=== PATIENT | male | born 1965 | race Caucasian/White ===

== ENCOUNTER 2016-08-10 11:26 | Emergency (ER) | payer OTHER ==
[~2016-08-10 11:26] MED LIST: ASPIRIN EC81 M1 PO; AUGMENTIN 500M500 MG PO; LIPITOR20 M2 PO; ZITHROMAX Z-PA250 M1 PO
[2016-08-10 11:32] VITALS: BP 152/78
--- NOTE | 2016-08-10 11:37 | ED GI/GU/ABDOMINAL COMPLAINT ---
History of Present Illness General Chief Complaint: Male Genitourinary Problems Stated Complaint: TESTICLE PAIN Source: patient Exam Limitations: no limitations Vital Signs & Intake/Output Vital Signs & Intake/Output Vital Signs Date Time Temp Pulse Resp B/P Pulse O2 O2 Flow FiO2 Ox Delivery Rate 08/10 1151 99 Room Air 08/10 1132 97.5 90 22 152/78 95 Room Air Allergies Coded Allergies: NO KNOWN ALLERGIES (03/27/15) Reconcile Medications Aspirin (Ecotrin*) 81 MG TABLET.DR 1 TAB PO DAILY HEART HEALTH (Reported) Atorvastatin Calcium (Lipitor) 20 MG TABLET 1 TAB PO DAILY CHOLESTEROL ( Reported) Triage Note: PER PT RT TESTICULAR SWELLING SINCE LAST PM, PER PT NO HEAVY LIFTING NO URINE C/O. US CALLED BUT NO ANSWER. PER PT TOOK [facility]VIL AT 0900 Triage Nurses Notes Reviewed? yes HPI: Patient is a 51-year-old male presents complaining of right testicular pain. Pain gradual onset yesterday evening. Pain is an aching sensation currently mild, no exacerbating factors. Patient has been taking ibuprofen for back pain with some improvement of his right testicular pain. Patient reports that he was swinging cough clubs yesterday when he felt a pull in his low back. Patient has been having back pain since then. Patient denies any known trauma or inciting factors affecting his right testicle. Urinary urgency 2 days ago, no urinary symptoms since then. Patient denies fevers, chills, abdominal pain, nausea, vomiting, dysuria, hematuria. (JUAN BERG) Past History Travel History Traveled to [place] past 21 day No Medical History Any Pertinent Medical History? see below for history Neurological: NONE EENT: NONE Cardiovascular: hyperlipidemia Respiratory: pneumonia Gastrointestinal: diverticulitis Hepatic: NONE Renal: NONE Musculoskeletal: NONE Psychiatric: NONE Endocrine: NONE Surgical History Surgical History: non-contributory Psychosocial History What is your primary language Slovak Tobacco Use: Quit <30 days ago Family History Hx Contributory? No (JUAN BERG) Review of Systems Review of Systems Constitutional: Denies: chills, fever. EENTM: Reports: no symptoms. Respiratory: Denies: cough, short of breath. Cardiovascular: Denies: chest pain. GI: Denies: abdominal pain, nausea, vomiting. Genitourinary: Reports: see HPI. Musculoskeletal: Reports: back pain. Skin: Reports: no symptoms. Neurological/Psychological: Reports: no symptoms. Hematologic/Endocrine: Reports: no symptoms. Immunologic/Allergic: Reports: no symptoms. (JUAN BERG) Physical Exam Physical Exam General Appearance: well developed/nourished, alert, awake Head: atraumatic, normal appearance Eyes: Bilateral: normal appearance. Ears, Nose, Throat, Mouth: hearing grossly normal Neck: normal inspection, supple, full range of motion Respiratory: no respiratory distress Gastrointestinal: normal bowel sounds, soft, non-tender, NO PALPABLE PULSATILE MASSES. nO PALPABLE HERNIAS Male Genitals: MILD RIGHT TESTICULAR TENDERNESS. nO EPIDIDYMAL TENDERNESS. nORMAL CREMASTERIC REFLEX. nO PALPABLE HERNIA IN THE INGUINAL CANAL Back: normal inspection, normal range of motion, no vertebral tenderness, NO PARASPINAL TENDERNESS Extremities: normal range of motion Neurologic/Psych: no motor/sensory deficits, awake, alert, oriented x 3, normal gait, normal mood/affect Skin: intact, normal color, warm/dry Core Measures ACS in differential dx? No Severe Sepsis Present: No Septic Shock Present: No (JUAN BERG) Progress Differential Diagnosis: epididymitis, orchitis, testicular torsion, hernia, hydrocele, varicocele, spermatocele, lumbar strain Plan of Care: Orders Procedure Date/time Status URINALYSIS 08/10 1144 Complete Laboratory Tests 08/10/16 1148: Urine Color YEL, Urine Clarity CLEAR, Urine pH 6.0, Ur Specific [place] <= 1.005 , Urine Protein NEG, Urine Ketones NEG, Urine Nitrite NEG, Urine Bilirubin NEG, Urine Urobilinogen 0.2, Ur Leukocyte Esterase NEG, Ur Microscopic EXAM NOT REQUIRED, Urine Hemoglobin NEG, Urine Glucose NEG 08/10/2016 1:41:32 PM: Results of ultrasound discussed with patient. Patient had to leave prior to the official results, I called him explaining the results and advised him to follow-up with Dr. Issa if no improvement by tomorrow. (REGIS TREVINO,JUAN) Diagnostic Imaging: Viewed by Me: Ultrasound. Discussed w/RAD: Ultrasound. Radiology Impression: PATIENT: ZOIE REINOSO PRESENT AGE: 51 PATIENT ACCOUNT NO: [id number] : 67 LOCATION: [facility] ORDERING PHYSICIAN: JUAN TREVINO SERVICE DATE: 08/10/16-1133 EXAM TYPE: US - US-TESTICULAR EXAMINATION: US TESTICULAR CLINICAL INFORMATION: Right scrotal pain and swelling. COMPARISON: None TECHNIQUE: Real-time imaging was performed using high-frequency linear transducer. FINDINGS: RIGHT SCROTUM: The right testicle is normal in size and appearance with normal echotexture. A single microlith is demonstrated. Size measures 3.1 x 2.4 x 3.6 cm with a volume of 19 mL. There is normal color and spectral Doppler blood flow with normal venous and arterial waveforms with no evidence for torsion. Small epididymal head cysts are seen but the largest measuring 0.8 cm. There is a small right hydrocele. LEFT SCROTUM: The left testicle is normal in size and appearance with normal echotexture. Normal color and spectral Doppler blood flow is present with normal venous and arterial waveforms. Size measures 3.7 x 2.2 x 3.1 cm with a volume of 18 mL. The epididymis is unremarkable. No hydrocele or varicocele is demonstrated. The epididymis is otherwise unremarkable. IMPRESSION: Unremarkable examination. DICTATED BY: SB FISHER MD DATE/TIME DICTATED:08/10/161300 MILLING MACHINE OPERATOR:YUNG DATE/TIME TRANSCRIBED:08/10/161300 CONFIDENTIAL, DO NOT COPY WITHOUT APPROPRIATE AUTHORIZATION. <Electronically signed in Other Vendor System> SIGNED BY: SB FISHER MD 08/10/161307 Initial ED EKG: none (JUAN BERG) Departure Departure Disposition: HOME OR SELF CARE Condition: Stable Clinical Impression Primary Impression: Right testicular pain Secondary Impressions: Lumbar strain Referrals: RACIEL RAMACHANDRAN,ANA Sahu (PCP/Family) Departure Forms: Customer Survey General Discharge Information (JUAN BERG) PA/GEOLOGICAL TECHNICAL OFFICER Co-Sign Statement Statement: ED Attending supervision documentation- [] I saw and evaluated the patient. I have also reviewed all the pertinent lab results and diagnostic results. I agree with the findings and the plan of care as documented in the PA's/GEOLOGICAL TECHNICAL OFFICER's documentation. [X] I have reviewed the ED Record and agree with the PA's/GEOLOGICAL TECHNICAL OFFICER's documentation. [] Additions or exceptions (if any) to the PAs/GEOLOGICAL TECHNICAL OFFICER's note and plan are summarized below: [] (MALISSA RAMACHANDRAN,TIFFANY Sanchez)
--- NOTE | 2016-08-10 13:08 | ULTRASOUND REPORT ---
EXAMINATION: US TESTICULAR CLINICAL INFORMATION: Right scrotal pain and swelling. COMPARISON: None TECHNIQUE: Real-time imaging was performed using high-frequency linear transducer. FINDINGS: RIGHT SCROTUM: The right testicle is normal in size and appearance with normal echotexture. A single microlith is demonstrated. Size measures 3.1 x 2.4 x 3.6 cm with a volume of 19 mL. There is normal color and spectral Doppler blood flow with normal venous and arterial waveforms with no evidence for torsion. Small epididymal head cysts are seen but the largest measuring 0.8 cm. There is a small right hydrocele. LEFT SCROTUM: The left testicle is normal in size and appearance with normal echotexture. Normal color and spectral Doppler blood flow is present with normal venous and arterial waveforms. Size measures 3.7 x 2.2 x 3.1 cm with a volume of 18 mL. The epididymis is unremarkable. No hydrocele or varicocele is demonstrated. The epididymis is otherwise unremarkable. IMPRESSION: Unremarkable examination.
== END 2016-08-10 11:51 ==
LOC: ERH 11:26
DX: S39.012A Strain of muscle, fascia and tendon of lower back, initial encounter (principal); N50.811 Right testicular pain; X50.9XXA Other and unspecified overexertion or strenuous movements or postures, initial encounter; Y93.53 Activity, golf; Y92.9 Unspecified place or not applicable
CPT/HCPCS: 81003